=== PATIENT | male | born 1975 | race Caucasian/White ===

== ENCOUNTER 2023-04-16 02:15 | Emergency (ER) | payer OTHER ==
[2023-04-16] MEDS ORDERED: MAG HYDROX/AL HYDROX/SIMETH 30 ML UNIT-DOSE CUP PO ONE (02:45)
[2023-04-16] MEDS ORDERED: FAMOTIDINE 20 MG/50 ML IVPB 20 MG/50 ML MG IVPB ONE (02:45)
[2023-04-16] MEDS ORDERED: ACETAMINOPHEN 325 MG TABLET (FP) PO ONE (02:46)
[2023-04-16 03:00] VITALS: PULSE 62; BMI 25.7
[2023-04-16 03:27] LABS: BASO % 0.4 % (0-2.0); EOS % 2.8 % (0-4.5); HEMOGLOBIN 15.8 GM/dL (11.7-16.9); LYMPH % 27.6 % (8-40); MCH 30.1 pg (25.7-33.7); MEAN CELL VOLUME 85.9 fl (80-96); MEAN PLT VOLUME 7.2 fl (7.5-11.1); MONO % 6.2 % (3.8-10.2); PLATELET COUNT 255 10^3/uL (134-434); RBC 5.24 M/mm3 (4.00-5.60); RDW 13.1 % (11.9-15.9); WHITE BLOOD COUNT 8.2 K/mm3 (4.0-10.0)
[2023-04-16 03:45] LABS: POTASSIUM 3.9 mmol/L (3.5-5.1)
[2023-04-16 03:47] LABS: ALBUMIN 3.7 g/dl (3.4-5.0); BLOOD UREA NITROGEN 19.9 mg/dL (7-18); CALCIUM 8.8 mg/dL (8.5-10.1)
[2023-04-16 03:50] LABS: CREATININE 1.1 mg/dL (0.55-1.3)
[2023-04-16 03:52] LABS: BILIRUBIN,TOTAL 0.4 mg/dL (0.2-1)
[2023-04-16] MEDS ORDERED: SODIUM CHLORIDE 0.9% 500 ML INFUS.BAG IV ONE (03:54)
[2023-04-16 06:45] VITALS: BP 118/67; RESP 16; TEMP 97.1
== END 2023-04-16 06:48 | disposition home or self-care (01) ==
LOC: JER 02:15
PROC: 3E033GC Introduction of Other Therapeutic Substance into Peripheral Vein, Percutaneous Approach (ICD-10-PCS; principal; 2023-04-16)
DX: R07.9 Chest pain, unspecified (principal); G47.9 Sleep disorder, unspecified; F41.9 Anxiety disorder, unspecified; Z20.822 Contact with and (suspected) exposure to COVID-19
CPT/HCPCS: 0241U-QW; 36415; 71046-TC-FY; 80053; 83690; 84439; 84443; 84484; 85025; 93005; 93010; 99285-25

== ENCOUNTER 2023-08-31 23:09 | Emergency (ER) | payer OTHER ==
[2023-08-31 23:15] VITALS: BP 135/89; PULSE 66; RESP 18; TEMP 97.6; BMI 27.1
== END 2023-09-01 01:16 | disposition left against medical advice (07) ==
LOC: JER 23:09
DX: F41.9 Anxiety disorder, unspecified (principal)
CPT/HCPCS: 99281-25